=== PATIENT | male | born 1950 | race Caucasian/White ===

== ENCOUNTER 2024-03-12 09:58 | Day surgery (SDC) | payer OTHER, SELFPAY ==
[2024-03-08 09:29] VITALS: BMI 28.2
--- NOTE | 2024-03-11 11:46 | P.CONAN_ITS ---
Documented by User: Josiane Elizabeth NP 03/11/24 11:55 HPI - Anesthesia Eval Consult details Narrative: 73yo M for Upper Endoscopy and Colonoscopy [facility] Past Medical History Medical History (Updated 03/08/24 @ 09:31 by Maria Isabel Fonseca RN) Hypothyroid GERD (gastroesophageal reflux disease) BPH (benign prostatic hyperplasia) HTN (hypertension) Surgical History Surgical History (Updated 03/08/24 @ 09:36 by Maria Isabel Fonseca RN) History of esophagogastroduodenoscopy (EGD) H/O colonoscopy Hx of thyroidectomy Social History Social History (Updated 03/08/24 @ 09:32 by Maria Isabel Fonseca RN) Household Members: Spouse Patient Tobacco Use Status: Former Tobacco user Use of substances other than those prescribed or required for medical reasons: Yes Substance Use Type Other:: CBD gummies for sleep Are you DNR?: No Advance Directives: No Advance Directives Information Provided: Yes Meds Allergies Allergy/AdvReac Type Severity Reaction Status Date / Time No Known Allergies Allergy Verified 03/12/24 10:12 Home Medications ?Medication ?Instructions ?Recorded ?Confirmed ?Last Taken ?Type amlodipine 2.5 mg-benazepril 10 mg 1 cap PO DAILY 03/08/24 03/12/24 03/12/24 05:30 History capsule levothyroxine 150 mcg tablet 150 mcg PO DAILY 03/08/24 03/12/24 03/12/24 05:30 History losartan 25 mg tablet 25 mg PO DAILY 03/08/24 03/12/24 03/12/24 05:30 History omeprazole 20 mg capsule,delayed 20 mg PO DAILY 03/08/24 03/12/24 03/12/24 05:30 History release Exam Height,Weight and Vital Signs: Height 6 ft 1 in Weight 97.069 kg Assessment and Plan Assessment Anesthesia Assessment: Chart Reviewed Documented by User: Wang Roth MD 03/12/24 11:05 [facility] Past Medical History Medical History (Updated 03/08/24 @ 09:31 by Maria Isabel Fonseca RN) Hypothyroid GERD (gastroesophageal reflux disease) BPH (benign prostatic hyperplasia) HTN (hypertension) Family History Family history of problems with anesthesia: No Surgical History Surgical History (Updated 03/08/24 @ 09:36 by Maria Isabel Fonseca RN) History of esophagogastroduodenoscopy (EGD) H/O colonoscopy Hx of thyroidectomy History of Problems with Anesthesia: No Social History Social History (Updated 03/08/24 @ 09:32 by Maria Isabel Fonseca RN) Household Members: Spouse Patient Tobacco Use Status: Former Tobacco user Use of substances other than those prescribed or required for medical reasons: Yes Substance Use Type Other:: CBD gummies for sleep Are you DNR?: No Advance Directives: No Advance Directives Information Provided: Yes Meds Allergies Allergy/AdvReac Type Severity Reaction Status Date / Time No Known Allergies Allergy Verified 03/12/24 10:12 Home Medications ?Medication ?Instructions ?Recorded ?Confirmed ?Last Taken ?Type amlodipine 2.5 mg-benazepril 10 mg 1 cap PO DAILY 03/08/24 03/12/24 03/12/24 05:30 History capsule levothyroxine 150 mcg tablet 150 mcg PO DAILY 03/08/24 03/12/24 03/12/24 05:30 History losartan 25 mg tablet 25 mg PO DAILY 03/08/24 03/12/24 03/12/24 05:30 History omeprazole 20 mg capsule,delayed 20 mg PO DAILY 03/08/24 03/12/24 03/12/24 05:30 History release Exam Airway Mallampati Class: II TM Dist: >3cm Neck ROM: Full Assessment and Plan Assessment Anesthesia Assessment: Anesthesia Plan Discussed Final Anesthetic Review Family History of Problems with Anesthesia: No History of Problems with Anesthesia: No NPO: Yes ASA Class: II Final Preanesthetic Review: No Changes in Pt Med Stat, Meds/Allgs Chart Reviewed, Consent Obtained/Reviewed and Anes Risks/Benef Reviewed Patient Risk: Intermediate Procedure Risk: Low Anesthetic Plan Anesthetic Plan: TIVA Disposition: Standard PACU
[2024-03-12 10:13] VITALS: BMI 27.3
[2024-03-12 10:19] VITALS: BP 178/108; PULSE 97; RESP 14; TEMP 37.2; O2SAT 96
[2024-03-12] MEDS: Lactated Ringers 1,000 ML 100 ML IVCONT (10:43)
--- NOTE | 2024-03-12 11:23 | MHC.SHP ---
Pre-Procedural Eval Section A - 24 Hr Update-Section A only Date of Service: 03/12/24 The patient is an INPATIENT: No Changes since office visit: No Cold of Flu in the past 2 weeks, No New Medical Problems, No Changes in Medication and No Patient answered all questions The patient has been examined within 24 hours of the surgical procedure. The History & Physical has been completed within 30 days and I have reviewed it.: Yes Section B - Complete if H&P > 30 days Chief Complaint: Gastric intestinal metaplasia, unspecified Allergies: Allergies Allergy/AdvReac Type Severity Reaction Status Date / Time No Known Allergies Allergy Verified 03/12/24 10:12 Plan I have reviewed the history and physical and performed a pertinent physical examination on my patient. No changes have occurred unless specified. Time Spent With Patient Time: Total time managing care of this patient today ____ minutes.
[2024-03-12 12:07] VITALS: BP 124/77; PULSE 91; RESP 14; TEMP 37.2; O2SAT 95
[2024-03-12 12:29] VITALS: BP 152/92; PULSE 86; RESP 17; TEMP 36.1; O2SAT 97
--- NOTE | 2024-03-12 12:54 | OP_ITS ---
cc: Lilo Camarena MD DATE OF SERVICE: 03/12/2024 SURGEON: Omid Chamorro MD INDICATIONS: 1. Gastric intestinal metaplasia. 2. Colon cancer screening and prior history of adenomatous colon polyps. PREOPERATIVE DIAGNOSIS: POSTOPERATIVE DIAGNOSIS: PROCEDURE PERFORMED: Upper endoscopy with biopsy, colonoscopy to the cecum with biopsy and snare polypectomy. ESTIMATED BLOOD LOSS: COMPLICATIONS: ANESTHESIA: Monitored anesthesia care. ASSISTANTS: SPECIMENS: DESCRIPTION OF PROCEDURE: A history and physical was performed. The risks and benefits of the procedure were explained to the patient. Informed consent was obtained. The patient was placed in the left lateral decubitus position. The Olympus video gastroscope was introduced into the esophagus, stomach, and duodenum. Examination was performed. The scope was removed. He tolerated the procedure well and was repositioned for colonoscopy. Digital rectal exam was performed and was found to be normal. The Olympus pediatric video colonoscope was introduced into the rectum and advanced to the cecum. The cecum was identified by transillumination, palpation, and identification of ileocecal valve. Examination was performed. The scope was removed. He tolerated both procedures well and was returned to the recovery area in stable condition. FINDINGS: Upper endoscopy: 1. Esophagus: The esophagus was normal. There was a small sliding hiatal hernia. 2. Stomach: The stomach showed no evidence of masses, ulcers, or polyps. Biopsies were obtained throughout the stomach in accordance with guidelines for gastrointestinal metaplasia. 3. Duodenum: The bulb and 2nd portion were normal. Colonoscopy: The terminal ileum was not examined. The visualized colonic mucosa was normal. The quality of the prep was good. Multiple polyps were present and the cecum, was a less than 5 mm polyp, which was removed with biopsy forceps. In the right colon were 3 polyps, all measuring less than 10 mm, which were removed with a hot snare and recovered via suction. At 90 cm were 2 polyps that were removed with a snare. The largest measured approximately 10 mm. These were recovered via suction. No other polyps were identified. There was moderate sigmoid diverticulosis. Retroflexed examination showed moderate-sized internal hemorrhoids. IMPRESSION: 1. Gastrointestinal metaplasia. 2. Colon polyps. RECOMMENDATION: Follow up the biopsy results. MD DAVID Mercado/MODL / [id number] [facility]
== END 2024-03-12 13:00 | disposition home or self-care (01) ==
PROVIDERS: Visit Provider Internal Medicine Gastroenterology
PROC: (CPT 43239; principal; 2024-03-12 11:50)
DX: K44.9 Diaphragmatic hernia without obstruction or gangrene (principal); K21.9 Gastro-esophageal reflux disease without esophagitis; K31.A0 Gastric intestinal metaplasia, unspecified; Z12.11 Encounter for screening for malignant neoplasm of colon; D12.0 Benign neoplasm of cecum; D12.2 Benign neoplasm of ascending colon; D12.3 Benign neoplasm of transverse colon; K57.30 Diverticulosis of large intestine without perforation or abscess without bleeding; K64.8 Other hemorrhoids; I10 Essential (primary) hypertension; E03.9 Hypothyroidism, unspecified; Z79.899 Other long term (current) drug therapy
CPT/HCPCS: 43239; 45385; 45380; 88305; 88313; 88342; J2003; J2704